=== PATIENT | male | born 1945 | race Caucasian/White ===

== ENCOUNTER 2024-11-22 19:56 | Emergency (ER) | payer OTHER, SELFPAY ==
[2024-11-22 20:03] VITALS: BP 158/69
[2024-11-22 20:29] LABS: % Basophils 0.5 % (0-2); % Eosinophils 3.1 % (0-6); % Immature Granulocytes 0.8 % (0-0.5); % Lymphocytes 24.9 % (20.5-51.1); % Monocytes 7.9 % (1.7-9.3); % Neutrophils 62.8 % (42.2-75.2); Absolute Eosinophils 0.2 10^3/uL (0-0.7); Absolute Immature Granulocytes 0.1 10^3/uL (0-0.05); Absolute Lymphocytes 1.5 10^3/uL (1.2-3.4); Absolute Monocytes 0.5 10^3/uL (0.1-0.6); Absolute Neutrophils 3.8 10^3/uL (1.4-6.5); Hemoglobin 11.9 g/dL (13.0-18.0); Mean Corpuscular Hgb 30.3 pg (27.0-31.0); Mean Corpuscular Volume 89.1 fL (80.0-94.0); Mean Platelet Volume 10.1 fL (7.4-10.4); Nucleated Red Blood Cells % 0 % (-); Platelet Count 219 10^3/uL (130-400); Red Blood Cell Count 3.93 10^6/uL (4.70-6.10); White Blood Cell Count 6.1 10^3/uL (4.8-10.8)
[2024-11-22 20:50] VITALS: BP 143/63
[2024-11-22 20:51] LABS: ALT (SGPT) 23 U/L (0-50); AST (SGOT) 22 U/L (17-59); Albumin 4.1 g/dl (3.5-5.0); Alkaline Phosphatase 62 U/L (38-126); Blood Urea Nitrogen 28 mg/dl (9-20); Calcium 10.6 mg/dl (8.4-10.2); Carbon Dioxide 30 mmol/L (22-30); Chloride 104 mmol/L (98-107); Glucose 90 mg/dl (70-99); Potassium 4.1 mmol/L (3.5-5.1); Sodium 141 mmol/L (135-145); Total Bilirubin 0.7 mg/dl (0.2-1.3); Total Protein 6.1 g/dl (6.3-8.2); eGFR > 60.00
[2024-11-22 21:00] VITALS: BP 150/66
[2024-11-22 21:06] LABS: Troponin I < 0.012 ng/ml
--- NOTE | 2024-11-22 21:29 | ED.GENMED ---
History of Present Illness
General
Chief Complaint: Abdominal Pain
Source: patient and spouse
Time Seen by Provider: 11/22/24 21:12
History of Present Illness
History of Present Illness:
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 The pain is 'sharp', and
will come lasting just seconds at a time before fully resolving. This has been happening every few minutes. He says at home he would cry out in pain but because he is in an ER he now is just jerking when he the pain because it is so painful. He
denies any specific provoking or relieving factors. He denies associated nausea, vomiting, dyspnea, abdominal pain, cough, sore throat, rhinorrhea, hemoptysis. The pain is not pleuritic in nature. His urine output has been normal without pain or
blood. He denies back pain.
Past History
Past History
ED Past Medical History: Other (Diabetes, hypertension, hypothyroidism, hypercholesterolemia, metastatic prostate CA)
Social History
Tobacco: Non-smoker
Alcohol: None
Drug: None
Personal:
Living: with family
Phy Exam
Physical Exam
Physical Exam:
GENERAL: Alert , in no apparent distress
EYE: pupils equal and reactive
NECK: Supple, no significant adenopathy.
ENT: o/p clr, mmm.
CARDIAC: Regular rate and rhythm .
LUNGS: Clear breath sounds bilaterally, no acute respiratory distress, no wheezes/rales/rhonchi. No findings of skin abnormalities of chest wall. Patient does have tenderness to palpation in the lower anterior and lateral left sided costal area,
no deformity, no crepitus, no break in skin
ABDOMEN: Soft, without focal tenderness, no r/g, no cvat
NEUROLOGICAL: Alert and oriented, no focal neuro deficits
SKIN: Warm and dry, skin intact.
MUSCULOSKELETAL: No edema, well perfused.
PSYCH: Normal and appropriate interaction.
Course
Orders/Labs/Results
Orders:
Orders
11/22/24 20:09
Electrocardiogram (*1) Urgent
Reason for Study: Chest Pain
Cardiac Monitoring- Treatment ONCE
EKG- Treatment ONCE
IV Insert/Care/Rem.- Treatment PRN
O2 Therapy [RESP] Urgent
Titrate/Wean O2 to maintain O2 sat greater than (%): 90
Special Instructions: Maintain sats >/=90%
Pulse Ox/spot Check [RESP] Urgent
Quantity: 1
Special Instructions: ON ROOM AIR
11/22/24 20:18
Complete Blood Count/With Diff Urgent
Comprehensive Metabolic Panel Urgent
Troponin I Urgent
11/22/24 21:28
CT Chest PE Study Urgent
Comment:
Reason For Exam: HX PROSTATE CA WITH MET TO LN, NOW L CP
11/22/24 21:29
Cardiac Monitoring- Treatment ONCE
Lidocaine [Lidocaine 4% Patch] 1 patch TOPICAL NOW STA
Apply Lidocaine patch(s) to:: L CHEST
11/22/24 22:30
diazePAM [Valium Injection] 2 mg IV NOW STA
11/22/24 23:04
diazePAM [Valium Injection] 2 mg IV NOW STA
11/23/24 00:02
Morphine Sulfate 4 mg IV NOW STA
Abnormal Lab Results
11/22/24
20:18
RBC 3.93 L 10^6/uL
(4.70-6.10)
Hgb 11.9 L g/dL
(13.0-18.0)
Hct 35.0 L %
(39.0-52.0)
Abs Immat Gran (auto) 0.1 H 10^3/uL
(0-0.05)
Immature Gran % 0.8 H %
(0-0.5)
BUN 28 H mg/dl
(9-20)
Calcium 10.6 H mg/dl
(8.4-10.2)
Total Protein 6.1 L g/dl
(6.3-8.2)
11/22/24 20:18
11/22/24 20:18
Vital Signs
Initial and Last Documented VS:
Initial Vital Signs
Temp Pulse Resp BP Pulse Ox
97.9 F 70 16 158/69 96
11/22/24 20:03 11/22/24 20:03 11/22/24 20:03 11/22/24 20:03 11/22/24 20:03
Last Documented Vital Signs
Temp Pulse Resp BP Pulse Ox
97.9 F 75 20 150/66 95
11/22/24 20:03 11/23/24 00:00 11/23/24 00:00 11/22/24 21:00 11/22/24 22:52
*Pulse Oximetry
SaO2: 96
Oxygen Mode of Delivery: Room air
Update Note
Update Note:
Patient presents to the Emergency Department with ____left chest wall pain
Number and Complexity of Problems Addressed at the Encounter
� Chronic conditions affecting care:
� Acute Exacerbation and/or Progression of Chronic Illness:
� Differential Diagnosis includes: Metastatic disease, rib fracture, PE, pleural effusion, ACS, etc. etc.
Amount and/or Complexity of Data to be Reviewed and Analyzed
� I performed an independent evaluation of and my interpretation is:
EKG: Read by me, normal sinus rhythm, normal rate, no acute ischemia
CT: Severe calcific atherosclerotic plaque in the coronary arteries.
2. Mild dependent subsegmental atelectasis and scarring in both lower lungs.
3. 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
4. Cholelithiasis.
5. 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
Xrays:
Laboratory Studies:
Other:
� Review of other/old records reveals: I reviewed papers brought by who is an RN� Patient's PET scan, medication list, etc.
� Clinical information was obtained by an independent historian: who is bedside
� Prescriptions/Medications Considered but not given:
� Further testing considered but not performed:
Risk of Complications and/or Morbidity or Mortality of Patient Management
� Social determinants of health affecting care:
� Discussion with other providers (PCP, Hospitalists, Consultants, etc):
� Escalation of care including admission/observation vs risk of discharge considered: 1:15 AM multiple reassessments here. Patient has been reporting 'spasms' of pain lasting seconds at a time in the same left thorax area. He
feels significantly better status post medications here. He would like to go home, and his who is bedside is in agreement. She does note that he did some heavy lifting of ice bags earlier today and wonders if this precipitated the spasms. No
other worrisome etiology noted such as PE, pneumothorax, rib fracture, new metastatic disease, etc. Discussed with patient and importance of follow-up and reasons to return to the emergency department. She was given copy of the CAT scan
report and I did encourage them to get all findings evaluated this week. Patient does not have symptoms to suggest relationship to stenosis of SMA.
ED Attending Note
-
Portions of this chart may have been created with voice recognition software.� Occasional wrong word or��sound alike� substitutions may have occurred due to the inherent limitations of voice recognition software.
Discharge Plan
Departure
Patient Disposition: Home (Routine Discharge)
Date of Disposition: 11/23/24
Time of Disposition: 01:17
Patient with high blood pressure during this ER visit?: Yes
Condition: Good
Discharge Problem:
Chest pain
Instructions: Chest pain, BLOOD PRESSURE
Prescriptions:
New
diazepam [Valium] 2 mg tablet
2 mg PO TID PRN (Reason: muscle spasm) Qty: 13 0RF
No Action
B-12
2,500 mcg PO DAILY
atorvastatin 40 mg Tablet
40 mg PO HS
metformin 500 mg Tablet
500 mg PO BID
famotidine 40 mg Tablet
40 mg PO DAILY PRN (Reason: indigestion )
prednisone 5 mg Tablet
5 mg PO DAILY
amlodipine 5 mg Tablet
5 mg PO DAILY
levothyroxine 50 mcg Tablet
50 mcg PO DAILY
aspirin 81 mg Tablet
81 mg PO HS
irbesartan 300 mg Tablet
300 mg PO DAILY
leuprolide acetate (6 month) 45 mg Syringe
45 mg SC [id number]
hydrochlorothiazide 12.5 mg Tablet
12.5 mg PO DAILY
insulin glulisine U-100 100 unit/mL Insulin Pen
36 unit SC QPM
magnesium glycinate 100 mg Tablet
100 mg PO HS
abiraterone 250 mg Tablet
1,000 mg PO DAILY
Trulicity 4.5 mg/0.5 mL Pen Injector
4.5 mg SC QWEEK
Calcium D3
500 mg PO DAILY
Referrals:
Belkis Bean MD [Family Provider] - Next open appointment
Activity Restrictions/Additional Instructions:
IF YOU DEVELOP INCREASING NEW OR PERSISTENT PAIN, TROUBLE BREATHING, FEVER, ABDOMINAL PAIN, NAUSEA, VOMITING, GET WORSE, DO NOT GET BETTER, OR OTHER WORRISOME SIGNS, PLEASE RETURN TO THE ER IMMEDIATELY EXCLAMATION
Interventions
Interventions:
*Risk Screen - Suicide Last Done: 11/22/24 20:03
*General Assessment Last Done: 11/22/24 21:37
*Neglect/Abuse Screening Last Done: 11/22/24 20:03
*ED- Fall Risk Assessment Last Done: 11/22/24 21:37
*ED COVID-19 Vaccine History Last Done: 11/22/24 22:45
PI-Feauvm-Ntrmmxlifu Assessment Last Done: 11/22/24 22:46
Discharge Date and Time
Print Language: KHMER
[2024-11-22] MEDS: LIDOCAINE 4% PATCH 1 PATCH TOPICAL (21:35)
[2024-11-22 21:36] VITALS: BMI 23.2
[2024-11-22] MEDS: VALIUM INJECTION 2 MG IV ×2 (22:38→23:06)
[2024-11-23] VITALS: BP 152/73
[2024-11-23] MEDS: MORPHINE SULFATE 4 MG IV (00:08)
[2024-11-23 01:00] VITALS: BP 155/65
== END 2024-11-23 01:36 | disposition home or self-care (01) ==
LOC: EMR 19:56
PROVIDERS: Student in an Organized Health Care Education/Training Program; EMERGENCY PHYSICIAN Emergency Medicine; FAMILY PHYSICIAN Family Medicine
DX: R07.89 Other chest pain (principal); I10 Essential (primary) hypertension
CPT/HCPCS: 99285; 96374; 96375; 96376; 71275; 80053; 84484; 85025; 93005; Q9967